=== PATIENT | female | born 1965 | race Caucasian/White ===

== ENCOUNTER 2023-02-03 07:15 | Day surgery (SDC) | payer MEDICAID ==
[~2023-02-03] VITALS: Ht 157.5 cm; Wt 56.2 kg
[2023-02-03] MEDS ORDERED: BENZOCAINE 20% 0.5mL UD SPRAY MM ONE (07:59)
[2023-02-03] MEDS ORDERED: MEPERIDINE 100 MG INJ. 100 MG/ML VIAL ONE (07:59)
[2023-02-03] MEDS ORDERED: MIDAZOLAM HCL 5 MG/5 ML VIAL ONE (08:00)
[2023-02-03 12:10] VITALS: BP_SYST 134; PULSE 64; RESP 15; TEMP 98.2; O2SAT 99
== END 2023-02-03 10:07 | disposition home or self-care (01) ==
LOC: SDS 07:15 → SMU 07:17 → SDS 10:07
PROVIDERS: ATTEND Student in an Organized Health Care Education/Training Program
DX: R10.13 Epigastric pain (principal); K29.50 Unspecified chronic gastritis without bleeding; E78.5 Hyperlipidemia, unspecified; G89.29 Other chronic pain; Z86.010 Personal history of colon polyps; Z79.899 Other long term (current) drug therapy
CPT/HCPCS: 43239; 88305; 88312; 88313; G0378; J2250; J2175